=== PATIENT | male | born 1960 | race Caucasian/White ===

== ENCOUNTER → 2018-02-04 | Outpatient (CLI) | payer OTHER ==
[~2018-02-04] MED LIST: ALEN1TAB48 PO; ALPR2TAB3 PO; ASPI81CH6 CHEW; COQ-50CA2; DHEA50TA2; FENO54TA PO; FISHCAP4 PO; IPRASOL INH; LISI-515 PO; LOVA40TA PO; METF1000 PO; MULT1TAB64; OXYC-395 PO; POTA10CA PO; TEST1KIT IM; TORS20TA PO; VITACAP7 PO; ZINC50TA2 PO
--- NOTE | 2018-02-09 09:49 | RSPPFT ---
DATE OF PROCEDURE: 02/04/18 COMMENTS: VOLUMES DYNAMIC: FVC normal; FEV1 moderately reduced. STATIC: FRC mildly increased, RV moderately increased, TLC normal. FLOWS: FEV1% moderately reduced; FEF 25-75 severely reduced. DIFFUSION: Normal. FLOW VOLUME LOOP: Pattern of variable intrathoracic airways obstruction. IMPRESSION: Moderately severe obstructive ventilatory defect with moderate hyperinflation and minimal change post-bronchodilator. Diffusion is mildly reduced.
== END ==
LOC: PHRSP 08:04
PROVIDERS: ATTEND Internal Medicine
DX: J44.9 Chronic obstructive pulmonary disease, unspecified (principal)
CPT/HCPCS: 94060; 94618; 94726; 94729

== ENCOUNTER 2018-02-24 11:13 | Day surgery (SDC) | payer OTHER ==
--- NOTE | 2018-02-02 13:41 | MB ---
cc: Darion Chavarria MD,Mitzi York, DATE: 02/24/2018 This is for an outpatient bronchoscopy being scheduled. HISTORY OF PRESENT ILLNESS: Mr. Amato is a 57-year-old white male, referred by Dr. Perez for consideration of bronchoscopy. He had a CT scan 12/30, at which time he had a fever, cough with purulent sputum, and he had tree-in-bud infiltrates on that scan, particularly in the right mid lung. No thromboembolism. The patient was a former smoker of 2-3 packs per day, quit smoking 4 years ago, at which time he had a very serious life threatening pneumonia, was hospitalized for about 3 weeks, had a tube for drainage of what sounds like it could have been an empyema and subsequent prolonged course of antibiotics. He quit smoking at that point. He was also subsequently seen by Dr. Gasca, had a sleep study, had sleep apnea, wore CPAP for about a year, but lost about 80 pounds and stopped the CPAP because he felt like he was better. He has actually had no followup on that. We have no previous pulmonary functions, although he has been told he has emphysema. The only treatment that he uses is a p.r.n. nebulizer with albuterol and Atrovent. His cough has resolved with the recent treatment of his pneumonia as an outpatient. He received a Z-PREM and a course of Levaquin. He has no hemoptysis. He is short of breath with exertion and has an intermittent cough. No prior cardiovascular history of significance, although he does have hypertension and diabetes. No history of ischemic heart disease or CHF. PAST MEDICAL HISTORY: Lumbosacral degenerative arthritis, but no surgery, obesity, BMI currently 33, but his weight is down nearly 80 pounds, PERRY, currently not on CPAP, hypertension, diabetes. ALLERGIES: NONE KNOWN. MEDICATIONS: Aspirin 81 mg, lisinopril, metformin, lovastatin, alendronate, fenofibrate, potassium, torsemide 20 mg 3 times a week, p.r.n. alprazolam and oxycodone for back pain as needed. FAMILY HISTORY: Father of cirrhosis of the liver. Mother is diabetic at 79. Fix siblings, one of whom of colon cancer. Three children in good health. SOCIAL HISTORY: , lives with his . Originally from [place]. He has lived in the [facility] for 30 years. 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 He was disabled for lung and back problems 3 years ago. 25 years. No alcohol use. He has a cat and dog at home. Over a [id number] smoking history. REVIEW OF SYSTEMS: No visual complaints. No anginal chest pain. Mild chronic edema. Denies reflux symptoms or history of ulcer disease. PHYSICAL EXAMINATION: VITAL SIGNS: 108/62, pulse 72, temperature 98, RR 18, saturation 98% room air. HEENT: Sclerae are anicteric. Pharynx is clear. Neck veins are flat. NECK: No adenopathy in the neck or supraclavicular region. CHEST: Clear. No wheezes or rales. No congestion. HEART: Regular rhythm. No harsh murmur. ABDOMEN: Soft. EXTREMITIES: Minimal ankle edema. No cyanosis or clubbing. CT scan is reviewed with the patient. He does have some patchy infiltrates in the right mid and lower lung zones, possibly related to INGRID. Nothing suspicious for malignancy. No adenopathy noted. Certainly proceeding with a diagnostic bronchoscopy may provide additional information, particularly with regard to atypical infections, which Dr. Perez is concerned about. PLAN: I have scheduled the patient for pulmonary functions once authorized by his insurance, [employer]. At that point, we will schedule him for a diagnostic bronchoscopy. I have explained the procedure to him in simple terms so that he understands what it involves. We also discussed potential complications including but not limited to anesthetic risk and risk of hemorrhage or pneumothorax. Further diagnostic and/or therapeutic intervention will depend on the results of these initial diagnostic studies. R. MD GREG Burch/VICKI , 02:11 PM , 02:42 PM AUSTYN
[~2018-02-24] VITALS: Ht 170.2 cm; Wt 91.0 kg
[2018-02-24 11:30] VITALS: BP 104/74; PULSE 73; RESP 16; TEMP 98.1; O2SAT 93
[2018-02-24] MEDS ORDERED: LISI-515 PO (11:34)
[2018-02-24] MEDS ORDERED: COQ-50CA2 (11:46)
[2018-02-24] MEDS ORDERED: LOVA40TA PO (11:46)
[2018-02-24] MEDS ORDERED: OXYC-395 PO (11:46)
[2018-02-24] MEDS ORDERED: MULT1TAB64 (11:46)
[2018-02-24] MEDS ORDERED: VITACAP7 PO (11:46)
[2018-02-24] MEDS ORDERED: METF1000 PO (11:46)
[2018-02-24] MEDS ORDERED: POTA10CA PO (11:46)
[2018-02-24] MEDS ORDERED: ALEN1TAB48 PO (11:46)
[2018-02-24] MEDS ORDERED: ALPR2TAB3 PO (11:46)
[2018-02-24] MEDS ORDERED: DHEA50TA2 (11:46)
[2018-02-24] MEDS ORDERED: ASPI81CH6 CHEW (11:46)
[2018-02-24] MEDS ORDERED: TORS20TA PO (11:46)
[2018-02-24] MEDS ORDERED: FENO54TA PO (11:46)
[2018-02-24] MEDS ORDERED: IPRASOL INH (11:46)
[2018-02-24] MEDS ORDERED: FISHCAP4 PO (11:46)
[2018-02-24] MEDS ORDERED: ZINC50TA2 PO (11:46)
[2018-02-24] MEDS ORDERED: TEST1KIT IM (11:46)
[2018-02-24] MEDS ORDERED: PROPOFOL 200 MG/20 ML AMP IV ONE (12:00)
[2018-02-24] MEDS ORDERED: PHENYLEPH/NS 1000 MCG/10 ML SYR IV ONE (12:00)
[2018-02-24] MEDS ORDERED: LIDOCAINE HCL 1% PF 5 ML SYRINGE OTHER ONE (12:00)
[2018-02-24] MEDS ORDERED: RESP: ALBUTEROL 2.5 MG/3 ML NEB (SCH) ONE (12:46)
[2018-02-24] MEDS ORDERED: SUGAMMADEX SODIUM 200 MG/2 ML VIAL IV PUSH ONE (12:58)
[2018-02-24] MEDS ORDERED: RESP: LIDOCAINE HCL 4% PF 5 ML NEB NEB ONE (13:30)
[2018-02-24] MEDS ORDERED: RESP: ALBUTEROL 2.5 MG/3 ML NEB (SCH) NEB ONE (13:30)
[2018-02-24] MEDS ORDERED: METOPROLOL TARTRATE 25 MG TAB PO PRN (13:45)
[2018-02-24] MEDS ORDERED: CHLORHEXIDINE GLUCONATE 2 % 1 PACK (2 CLOTHS) TOPICAL PRN (13:45)
[2018-02-24] MEDS ORDERED: POVIDONE IODINE 5% (ANTISEPSIS KIT) 4 APPLICATIONS EACH NARE PRN (13:45)
[2018-02-24] MEDS ORDERED: SODIUM CHLORID 0.9% 500 ML IV PRN (13:45)
[2018-02-24] MEDS ORDERED: LACTATED RINGER'S 1000 ML IV PRN (13:45)
[2018-02-24] MEDS ORDERED: RESP: ALBUTEROL 2.5 MG/IPRATROPIUM 0.5 MG NEB (PRN) NEB (14:00)
[2018-02-24] MEDS ORDERED: SODIUM CHLOR 0.45% 1000 ML INJ 1,000 ML IV SCH (14:00)
[2018-02-24] MEDS ORDERED: MIDAZOLAM HCL 2 MG/2 ML VIAL ONE (14:22)
--- NOTE | 2018-02-24 14:32 | MR ---
cc: Darion Chavarria MD, Reba K MD Morales,Ilan MCWILLIAMS DATE: 02/24/2018 PROCEDURE: Bronchoscopy. INDICATION: Right mid and lower lobe nodular infiltrate, possible infection. DESCRIPTION OF PROCEDURE: After informed consent was obtained, the patient underwent diagnostic bronchoscopy with LMA anesthesia. Examination of the larynx was unremarkable. Examination of the trachea revealed some scattered secretions, easily aspirated. Examination of the left main stem bronchus, left upper lobe and lower lobes entirely unremarkable. Examination of the right main stem bronchus again revealed some scattered slightly purulent secretions, easily aspirated. Right upper lobe, middle lobe and lower lobe orifices were examined and there was no endobronchial pathology. Based on the findings on the CT, the right middle lobe was then lavaged and submitted for cultures, AFB, routine and fungus. Bronchoalveolar lavage of the right lower lobe was then undertaken and submitted for cultures as well including routine, AFB and fungus and also sent for cytology. IMPRESSION: In summary, this is a normal endoscopic exam. Bronchoalveolar lavage specimens were submitted for culture and cytology. He tolerated the procedure well, without apparent complication. He is being prepared for recovery at present. RMD GREG Schaffer/VICKI , 01:56 PM , 02:30 PM
[2018-02-24 14:45] VITALS: BP 95/62; PULSE 80; RESP 20; O2SAT 93
[2018-02-24 15:46] VITALS: BP 103/57; PULSE 73; RESP 20; O2SAT 93
== END 2018-02-24 15:51 | disposition home or self-care (01) ==
LOC: HROP 11:13 → HRIP 11:18 → HROP 15:51
PROVIDERS: ATTEND Internal Medicine
DX: R91.8 Other nonspecific abnormal finding of lung field (principal); I10 Essential (primary) hypertension; E11.9 Type 2 diabetes mellitus without complications; J44.9 Chronic obstructive pulmonary disease, unspecified; G47.30 Sleep apnea, unspecified; M19.90 Unspecified osteoarthritis, unspecified site; E66.9 Obesity, unspecified; Z68.31 Body mass index [BMI] 31.0-31.9, adult
CPT/HCPCS: 00520; 31622; 87015; 87070; 87102; 87116; 87205; 87206; 88112; 88305; J2250; J2370; J3010; J7613